=== PATIENT | female | born 2000 | race Caucasian/White ===

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

== ENCOUNTER 2022-09-09 09:20 | Emergency (ER) | payer OTHER, SELFPAY ==
[2022-09-09 09:45] VITALS: BP 121/82; PULSE 103; RESP 17; TEMP 36.8; O2SAT 99; BMI 37.3
[2022-09-09 10:17] LABS: Basophils % 0.3 %; Eosinophils % 0.5 %; Hematocrit 42.9 % (37.0-47.0); Hemoglobin 13.8 g/dL (11.5-15.3); Lymphocytes # 0.7 10^3/uL (1.5-6.5); Lymphocytes % 8.9 %; Mean Corpuscular HGB Conc 32.2 g/dL (30.0-36.0); Mean Corpuscular Hemoglobin 27.8 pg (28.0-34.0); Mean Corpuscular Volume 86.3 fl (81-99); Mean Platelet Volume 9.1 fL (7.4-10.4); Monocytes # 0.6 10^3/uL (0.2-0.9); Monocytes % 7.6 %; Neutrophils # 6.19 10^3/uL (1.8-8.0); Neutrophils % 82.4 %; Nucleated Red Blood Cells % 0 %; Platelet Count 321 10^3/cmm (130-400); Red Blood Count 4.97 10^6/uL (4.1-5.3); Red Cell Distribution Width 13.2 % (12.1-15.1); White Blood Count 7.5 10^3/uL (4.5-13.0)
[2022-09-09 10:37] LABS: Alanine Aminotransferase 15 U/L (0-33); Alkaline Phosphatase 109 U/L (35-105); Anion Gap 14.9 (5-19); Aspartate Amino Transferase 17 U/L (0-32); Blood Urea Nitrogen 7 mg/dL (6-20); Calcium 9.1 mg/dL (8.5-10.5); Carbon Dioxide 23 mmol/L (22-29); Chloride 104 mmol/L (98-107); Globulin 3.2 g/dL (1.3-4.6); Glomerular Filtration Rate 127.5 mL/min (90-130); Glucose 92 mg/dL (65-115); Lipase 16 U/L (13-60); Osmolality Calculated 284 mOsm/kg (285-295); Potassium 3.9 mmol/L (3.5-5.1); Sodium 138 mmol/L (136-145); Total Bilirubin 0.5 mg/dL (0.15-1.2); Total Protein 7.2 g/dL (6.6-8.7)
[2022-09-09 10:42] LABS: Add Urine Microscopic? NO; Charge for UA Resulting for Rev
[2022-09-09 10:49] LABS: HCG, Serum Qual Negative (Negative)
[2022-09-09 11:01] LABS: Bilirubin Urine Neg (Negative); Blood Urine Neg (Negative); Glucose Urine UA Norm (Normal); Ketones Urine Negative (Negative); Leukocyte Esterase Urine Negative (Negative); Nitrate Urine Negative (Negative); Protein Urine Neg (Negative); Specific Gravity, Urine 1.005 (1.005-1.030); Urine Appearance Clear (CLEAR); Urine Color Yellow (Yellow); Urobilinogen Urine Norm (Negative); pH Urine 7 (5-7)
--- NOTE | 2022-09-09 11:21 | US_ITS ---
WS: [id number] ABDOMINAL ULTRASOUND LIMITED REASON FOR EXAM: RUQ pain, n/v/d COMPARISON: None available. ORDER DATE: 09/09/2022 11:27 AM TECHNIQUE: Grayscale and Doppler ultrasound examination of the abdomen. FINDINGS: Pancreas: Unremarkable as visualized Abdominal aorta and IVC: Aortic diameter 14 mm IVC diameter 12 mm Liver: Liver measures 14.1 cm in length. Normal echotexture Gallbladder: Gallbladder wall thickness measures 3 mm but has the appearance of slight wall thickenin g. Common bile duct 2 mm Right kidney: Right kidney measures 9.9 cm x 3.8 cm x 4.1 cm. Right renal echotexture unremarkable. US/US gall bladder [id number] IMPRESSION: Minimal gallbladder wall thickening no cholelithiasis or pericholecystic edema.
--- NOTE | 2022-09-09 11:24 | W.ED.ABDPA2 ---
HPI - Abdominal Pain General: Chief Complaint: Nausea/Vomiting/Diarrhea Stated Complaint: N/V/D not able to keep anything down Time Seen by Provider: 09/09/22 09:22 History of Present Illness: Patient is a 22-year-old female who comes to the ED with abdominal pain, nausea/vomiting and diarrhea. Symptoms have been going on now for approximately 2 weeks. The last couple days the abdominal pain has gotten a lot worse along with the nausea and vomiting. She went to urgent care 2 days ago and was put on a nausea med. She has been taking the nausea medicine has not been helping. She states that after she eats she gets a severe burning pain in epigastric region and sharp pain in right upper quadrant of the abdomen. She rates her pain currently an 8 out of 10. Nausea and vomiting worsens right after she eats as well and has been having trouble keeping any food or fluids down over the past couple days. Endorses having multiple episodes of diarrhea this morning. Denies any fevers, chills, dysuria or hematuria. Associated Symptoms: Reports diarrhea, nausea and vomiting; Denies chills, constipation, dysuria, fever(s), hematochezia and hematuria Review of Systems Const: Denies: fever(s), chills or fatigue Eyes: Denies: change in vision or eye discomfort ENMT: Denies: throat pain, odynophagia, nasal discharge or nasal congestion Card: Denies: chest pain, palpitations, edema, swelling of feet/ankles, dyspnea on exertion or orthopnea Resp: Denies: dyspnea, productive cough or non-productive cough GI: Reports: abdominal pain, nausea, vomiting and diarrhea; Denies: constipation or hematochezia : Denies: flank pain, dysuria or hematuria Musc: Denies: neck pain, back pain or extremity swelling Skin/Breast: Denies: rash or new lesions Neuro: Denies: headache(s), numbness in extremities or weakness in extremities PFSH ED PFSH: Medical History Anxiety Depression No pertinent past medical history neghx: htn,dm,thyroid,dvt/pe PCP: Dottie Lux Surgical History S/P appendectomy Family History Grandmother Diabetes Great Maternal Cardiovascular accident Paternal Ovarian cancer Maternal--age unknown Grandfather Diabetes Paternal Mother Ovarian cancer Age: late 20's Thyroid disease type unknown Denies family history of Colon cancer Heart disease Hypercholesteremia Breast cancer Hypertension Uterine cancer Stroke Social History Smoking and tobacco status: current every day smoker (vape) Physical Exam Const: COMMON NORMALS: patient oriented x3 HENMT: COMMON NORMALS: normocephalic HEAD & SCALP: normocephalic MOUTH: Normal oral and palatal mucosa present THROAT: posterior oropharynx normal and uvula midline Neck/C-Spine: COMMON NORMALS: supple GENERAL: Yes normal visual inspection Resp: COMMON NORMALS: normal respiratory effort, No retractions, No use of accessory muscles and clear to auscultation bilaterally AUSCULTATION: clear to auscultation bilaterally Cardio: COMMON NORMALS: regular rate, regular rhythm, S1 normal heart sound present, S2 normal heart sound present, No gallops present (Cardio), No clicks present (Cardio), No murmurs present (Cardio) and Peripheral pulses 2+ throughout RATE: regular rate RHYTHM: regular rhythm HEART SOUNDS: S1 normal heart sound present and S2 normal heart sound present PERIPHERAL PULSES: Peripheral pulses 2+ throughout GI: COMMON NORMALS: Normal to inspection, nondistended, normoactive bowel sounds present, Soft to palpation and no masses PALPATION: Yes Soft to palpation and Yes Tenderness to palpation present (GI) Details: RUQ and other (Epigastric pain) : COMMON NORMALS: Yes no CVA tenderness BLADDER/KIDNEY EXAM: Yes no CVA tenderness Back/Pelvis: COMMON NORMALS: no CVA tenderness Extremity: COMMON NORMALS: normal to inspection Neuro: COMMON NORMALS: patient oriented x3 GAIT: Yes Normal gait present Skin: GENERAL SKIN EXAM: dry skin Course Vital Signs: Vital signs: Vital Signs Temperature 98.2 F 09/09/22 09:45 Pulse Rate 74 09/09/22 13:49 Respiratory Rate 18 09/09/22 13:49 Blood Pressure 134/70 09/09/22 13:49 Pulse Oximetry 100 09/09/22 13:49 Oxygen Delivery Me thod 09/09/22 13:00 MDM - Abdominal Pain Medical Decision Making Patient is a 22-year-old female who comes to the ED with abdominal pain, nausea/vomiting and diarrhea. Symptoms have been going on now for approximately 2 weeks. The last couple days the abdominal pain has gotten a lot worse along with the nausea and vomiting. She went to urgent care 2 days ago and was put on a nausea med. She has been taking the nausea medicine has not been helping. She states that after she eats she gets a severe burning pain in epigastric region and sharp pain in right upper quadrant of the abdomen. She rates her pain currently an 8 out of 10. Nausea and vomiting worsens right after she eats as well and has been having trouble keeping any food or fluids down over the past couple days. Endorses having multiple episodes of diarrhea this morning. Denies any fevers, chills, dysuria or hematuria. Vitals are stable. She appears nontoxic in no acute distress. Patient has right upper quadrant abdominal tenderness upon exam. Rest of exam is benign. Labs are all unremarkable. Ultrasound of the gallbladder showed some minimal wall thickness but no other acute findings. Patient was given IV fluids, morphine and Zofran her symptoms improved greatly. She was pain-free and able to tolerate p.o. fluids without any vomiting. She was stable for discharge home and placed order with case management for patient be referred to general surgery for follow-up. She was diagnosed with biliary colic and was discharged home with a prescription for Zofran, Pepcid and hydrocodone. Return to ED precautions given. Patient understood agree with plan. Lab Data I reviewed the patient's lab results. 09/09/22 10:13 09/09/22 10:13 Labs/Radiology: Radiology Impressions Gallbladder Ultrasound 09/09/22 11:21 IMPRESSION: Minimal gallbladder wall thickening no cholelithiasis or pericholecystic edema. Laboratory Results WBC 7.5 10^3/uL (4.5-13.0) 09/09/22 10:13 RBC 4.97 10^6/uL (4.1-5.3) 09/09/22 10:13 Hgb 13.8 g/dL (11.5-15.3) 09/09/22 10:13 Hct 42.9 % (37.0-47.0) 09/09/22 10:13 MCV 86.3 fl (81-99) 09/09/22 10:13 MCH 27.8 pg (28.0-34.0) L 09/09/22 10:13 MCHC 32.2 g/dL (30.0-36.0) 09/09/22 10:13 RDW 13.2 % (12.1-15.1) 09/09/22 10:13 Plt Count 321 10^3/cmm (130-400) 09/09/22 10:13 MPV 9.1 fL (7.4-10.4) 09/09/22 10:13 Neut % (Auto) 82.4 % 09/09/22 10:13 Lymph % (Auto) 8.9 % 09/09/22 10:13 [place] % (Auto) 7.6 % 09/09/22 10:13 Eos % (Auto) 0.5 % 09/09/22 10:13 Baso % (Auto) 0.3 % 09/09/22 10:13 Neut # (Auto) 6.19 10^3/uL (1.8-8.0) 09/09/22 10:13 Lymph # (Auto) 0.7 10^3/uL (1.5-6.5) L 09/09/22 10:13 [place] # (Auto) 0.6 10^3/uL (0.2-0.9) 09/09/22 10:13 Eos # (Auto) 0.0 10^3/uL (0.0-0.8) 09/09/22 10:13 Baso # (Auto) 0.0 10^3/uL (0.0-0.1) 09/09/22 10:13 Nucleated RBC % (auto) 0 % 09/09/22 10:13 Nucleated RBCs # 0.0 /100WBC 09/09/22 10:13 Sodium 138 mmol/L (136-145) 09/09/22 10:13 Potassium 3.9 mmol/L (3.5-5.1) 09/09/22 10:13 Chloride 104 mmol/L (98-107) 09/09/22 10:13 Carbon Dioxide 23 mmol/L (22-29) 09/09/22 10:13 Anion Gap 14.9 (5-19) 09/09/22 10:13 BUN 7 mg/dL (6-20) 09/09/22 10:13 Creatinine 0.6 mg/dL (0.5-0.9) 09/09/22 10:13 GFR Calculation 127.5 mL/min (90-130) 09/09/22 10:13 Glucose 92 mg/dL (65-115) 09/09/22 10:13 Calculated Osmolality 284 mOsm/kg (285-295) L 09/09/22 10:13 Calcium 9.1 mg/dL (8.5-10.5) 09/09/22 10:13 Total Bilirubin 0.5 mg/dL (0.15-1.2) 09/09/22 10:13 AST 17 U/L (0-32) 09/09/22 10:13 ALT 15 U/L (0-33) 09/09/22 10:13 Alkaline Phosphatase 109 U/L (35-105) H 09/09/22 10:13 Total Protein 7.2 g/dL (6.6-8.7) 09/09/22 10:13 Albumin 4.0 g/dL (3.5-5.2) 09/09/22 10:13 Globulin 3.2 g/dL (1.3-4.6) 09/09/22 10:13 Lipase 16 U/L (13-60) 09/09/22 10:13 HCG, Qual Negative (Negative) 09/09/22 10:13 Urine Color Yellow (Yellow) 09/09/22 10:18 Urine Appearance Clear (CLEAR) 09/09/22 10:18 Urine pH 7 (5-7) 09/09/22 10:18 Ur Specific [place] 1.005 (1.005-1.030) 09/09/22 10:18 Urine Protein Neg (Negative) 09/09/22 10:18 Urine Glucose (UA) Norm (Normal) 09/09/22 10:18 Urine Ketones Negative (Negative) 09/09/22 10:18 Urine Blood Neg (Negative) 09/09/22 10:18 Urine Nitrate Negative (Negative) 09/09/22 10:18 Urine Bilirubin Neg (Negative) 09/09/22 10:18 Urine Urobilinogen Norm mg/dL (Negative) 09/09/22 10:18 Ur Leukocyte Esterase Negative (Negative) 09/09/22 10:18 Discharge Plan Discharge Patient Disposition: Home Clinical Impression: Biliary colic Condition: Stable Prescriptions: New ondansetron 4 mg tablet,disintegrating 4 mg PO Q8H PRN (Reason: nausea and vomiting) Qty: 20 0RF Pepcid 20 mg tablet 20 mg PO BID 42 Days Qty: 84 0RF No Action multivitamin Tablet 1 tab PO DAILY metoclopramide HCl 10 mg tablet 10 mg PO QID nitrofurantoin monohyd/m-cryst 100 mg capsule 1 cap PO BID Rx Instructions: rx filled 09/06/22 7d/s Discharge Orders: Discharge ED (Routine); Ordered 09/09/22 Ordered By: Aurelio Chowdary Referrals: Isabela Agustin FNP [Primary Care Provider] - Discharge Diet: Advance as tolerated and Clear Liquid Discharge Activity: Increase activity as tolerated Patient Instructions: Biliary Colic (ED), Opioid Safety Activity Restrictions/Additional Instructions: Follow-up with medical provider as directed. Case management regarding the neck several days to set up an appointment with general surgery for follow-up. Clear liquid diet for the next 24 hours and slowly advance diet as tolerated. Take medications as prescribed. Return to the ER or your medical provider if condition worsens. Please read and understand discharge instructions. Thank you for choosing [facility] for your healthcare needs today. Please realize this is an emergency room and that we are providing you with a medical screening exam and this may not be complete and all inclusive of all the testing and or work up that you may need to determine your ailment or severity of your illness. It is very important that you follow up as instructed or that you return to the Emergency Department should you have concerns or if your condition changes or worsens in any way. Coding Level of Care Code ED [place] Worker for Patricia Patterson
[2022-09-09 11:39] VITALS: RESP 18; O2SAT 98
[2022-09-09] MEDS: morphine 4 mg/mL SDV 1 mL IVP (11:39)
[2022-09-09] MEDS: ondansetron 2 mg/ML SDV 2 mL 4 MG IVP (11:39)
[2022-09-09] MEDS: sodium chloride 0.9% 1,000 ML 999 ML IV (11:40)
[2022-09-09 11:49] VITALS: BP 118/62; PULSE 80; RESP 18; O2SAT 100
--- NOTE | 2022-09-09 11:51 | PC.NURSE ---
US IN ROOM WITH PATIENT.
[2022-09-09 13:00] VITALS: PULSE 74; RESP 18; O2SAT 100
[2022-09-09 13:49] VITALS: BP 134/70; PULSE 74; RESP 18; O2SAT 100
--- NOTE | 2022-09-12 10:53 | DCPLANNER ---
Addendum entered by Lexi Gorman 09/14/22 11:28: income tax manager called [facility] to confirm that facility received patients information. income tax manager was told that patients information had been received, and that clinic will call patient with appointment information Addendum entered by Lexi Gorman 09/13/22 11:11: income tax manager received the following message from general surgery regarding follow up appointment: Patient has [employer] which is a [facility] company, Dr. Bassett is not in network with [facility].. Please refer elsewhere medical case worker spoke with patient and informed her of this and asked patient if she wanted to be referred to [facility] or [facility] - patient stated that she would like to be referred to [facility]. income tax manager faxed patients information to the [facility] general surgery clinic. Original Note: income tax manager had message to schedule a follow up appointment for patient with general surgery. income tax manager sent patients information to the front office staff at general surgery. Patients information will be reviewed. Clinic will call patient with appointment information.
== END 2022-09-09 13:56 | disposition home or self-care (01) ==
PROVIDERS: Emergency Provider Physician Assistant; PCP Nurse Practitioner Family
DX: K80.50 Calculus of bile duct without cholangitis or cholecystitis without obstruction (principal); F17.290 Nicotine dependence, other tobacco product, uncomplicated
CPT/HCPCS: 36415; 76705; 80053; 81003; 83690; 84703; 85025; 96361; 96374; 96375; 99285; J2270; J2405; J7030

== ENCOUNTER 2023-07-20 19:30 | Emergency (ER) | payer OTHER, SELFPAY ==
[2023-07-20 19:32] VITALS: BP 131/82; PULSE 80; RESP 18; TEMP 36.7; O2SAT 100; BMI 37.8
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
[2023-07-20 20:09] VITALS: BP 144/99; PULSE 78; RESP 16; O2SAT 97
== END 2023-07-20 20:52 | disposition home or self-care (01) ==
PROVIDERS: Emergency Provider Emergency Medicine; PCP Nurse Practitioner Family
DX: S13.4XXA Sprain of ligaments of cervical spine, initial encounter (principal); F17.290 Nicotine dependence, other tobacco product, uncomplicated; V89.2XXA Person injured in unspecified motor-vehicle accident, traffic, initial encounter
CPT/HCPCS: 72125; 99284